=== PATIENT | male | born 1960 | race Caucasian/White ===

== ENCOUNTER 2017-09-27 22:14 | Observation (INO) ==
--- NOTE | 2017-09-27 23:28 | Emergency Department Note ---
START Narrative - START START: I examined this patient and my medical decision-making was reviewed with the Resident Physician. I agree with the documented findings, disposition and treatment plan as described except to the extent set forth below. 57 yo M here for food bolus of steak stuck in esophagus. hx of same in past consult with endoscopy attempted glucagon with no relief. admit to surgical services per dr king. Dr Gallo spoke with her over phone
--- NOTE | 2017-09-27 23:34 | Emergency Department Note ---
Disposition Clinical Impression: Esophageal obstruction due to food impaction Disposition: Admitted As Inpatient Condition: Fair Time of Disposition: 00:05 General Adult HPI - General Chief complaint: ED Shortness of Breath/Dyspnea Stated complaint: Food Bolus Time Seen by Provider: 09/27/17 23:11 Source: patient Limitations: no limitations - History of Present Illness HPI Narrative: Patient is a 57-year-old male who presented to [facility] ED on 09/27/17 with a chief complaint of choking. Patient states that approximately 7 PM, he choked on a bolus of food. He was eating steak when he began to choke. Patient attempted to cough up the piece of steak several times without success. Patient states that this happens to him very frequently before the year 2010, when he was diagnosed with esophageal stricture. Patient underwent an esophageal dilation procedure. Ever since this time, patient has had no episodes of choking. Patient admits that he took a cough suppressant medication one day prior to this episode. Patient is not currently on any blood thinners. Patient is unable to tolerate anything by mouth at this time. Patient states that he vomits subsequently after any oral intake. He reports that he is bringing up a large amount of mucus. Denies having any abdominal pain. No further complaints at this time. Pt Subjective Complaint: Choking Onset (ago): hour(s) Pain Scale: 3 Improves with: nothing Worsens with: nothing Associated symptoms: Reports: nausea/vomiting - Related Data Previous Rx's Medication Instructions Recorded Mupirocin [Bactroban Oint] 1 appl TP BID 7 Days tube 11/25/16 Sulfamethoxazole/Trimeth DS 1 each PO BID #14 tablet 11/25/16 [Bactrim DS] Allergies Allergy/AdvReac Type Severity Reaction Status Date / Time No Known Allergies Allergy Verified 11/25/16 14:11 Constitutional: Reports: as per HPI. Denies: fever, chills Eyes: Reports: as per HPI. Denies: eye pain, eye discharge ENT ED: Reports: as per HPI. Denies: ear pain, throat pain Cardiovascular: Reports: as per HPI. Denies: chest pain, palpitations Respiratory: Reports: as per HPI. Denies: cough, dyspnea Gastrointestinal: Reports: as per HPI. Denies: abdominal pain, nausea Genitourinary: Reports: as per HPI. Denies: urgency, dysuria Musculoskeletal: Reports: as per HPI. Denies: back pain, neck pain Integumentary: Reports: as per HPI. Denies: rash, abrasion Neurological: Reports: as per HPI. Denies: headache, weakness Psychiatric: Reports: as per HPI. Denies: anxiety, depression Past Medical History - Past Medical History Medical history: Reports: non-contributory Psychiatric history: Reports: no psych history - Social History Smoking Status: Never smoker Smokeless Tobacco Status: No Alcohol use: Reports: none Drug use: Reports: none Physical Exam - General Limitations: no limitations General appearance: alert - Head Head exam: atraumatic, other (Patient is speaking in a hoarse voice) - Chest Chest inspection: Present: normal inspection, symmetric chest wall rise - Respiratory Respiratory exam: Present: normal lung sounds bilaterally. Absent: respiratory distress, accessory muscle use, prolonged expiratory phase - Cardiovascular Cardiovascular exam: Present: regular rate, normal rhythm, normal heart sounds, +S1, +S2. Absent: bradycardia, tachycardia, systolic murmur, diastolic murmur - Abdominal Exam Abdominal exam: Present: soft, Non-Tender - Neurological Exam Neurological exam: Present: alert, oriented X3 - Psychiatric Psychiatric exam: Present: normal affect - Skin Skin exam: Present: warm, dry, intact Course Course Narrative: Patient is a 57-year-old gentleman who presented after choking on a fluid bolus. Patient is in a moderate amount of distress. He is producing a small amount of mucus from his mouth. He is unable to cough up any food material. Unable to tolerate oral intake at this time. We will start him on normal saline. Spoke with surgeon Dr. Hicks, who requested that he be admitted to the floor. Patient will be scoped tomorrow morning. Vital Signs Temperature 98 F 09/27/17 22:18 Pulse Rate 107 09/27/17 22:18 Respiratory Rate 20 09/27/17 22:18 Blood Pressure 182/118 09/27/17 22:18 O2 Sat by Pulse Oximetry 98 09/27/17 22:18 Temperature 98 F 09/27/17 22:18 Pulse Rate 80 09/27/17 23:51 Respiratory Rate 16 09/27/17 23:51 Blood Pressure 118/76 09/27/17 23:51 O2 Sat by Pulse Oximetry 98 09/27/17 23:51 Oxygen Delivery Oxygen Delivery Room Air
[2017-09-27] MEDS: 0.9 % Sodium Chloride 1,000 ML IVC SCH (23:35)
[2017-09-27] MEDS ORDERED: *HR* Nalbuphine 20 MG/ML AMPUL IVP ONE (23:44)
[2017-09-27] MEDS ORDERED: Ondansetron 4 MG/2 ML VIAL IVP ONE (23:44)
[2017-09-27] MEDS ORDERED: *HR* Nalbuphine 10 MG/ML AMPUL IVP ONE (23:45)
[2017-09-28] MEDS: 0.9 % Sodium Chloride 1,000 ML IVC SCH (00:42)
[2017-09-28] MEDS ORDERED: Ondansetron 4 MG/2 ML VIAL IVP PRN (05:19)
--- NOTE | 2017-09-28 06:03 | General Surg History&Physical ---
Date of Encounter: 09/28/17 Time of Encounter: 06:01 Assessment and Plan (1) Esophageal obstruction due to food impaction Current Visit: Yes Status: Acute The assessment and plan as outlined above was discussed with the patient and/or family members who expressed understanding and agreement. All questions were answered.] discussed with patient and his we will plan EGD with foreign body extraction. will dilate if needed npo ivf History of Present Illness Chief complaint: steak stuck in esophagus HPI: Mr. Buck is a 57 year old male who was eating steak at 7pm when he felt a piece of steak lodge at bottom of esophagus. He denies chest or throat pain. No abdominal pain. No nausea. Is not able to swallow his secretions. He had an esophageal foreign body removed in 2010 and subsequent dilation. No issues since then. Past Med Surg Social Fam HX - Past Medical History Source: patient Medical history: hyperlipidemia Psychiatric history: no psych history - Past Surgical History Surgical History: cholecystectomy, other (spinal fusion after fall with fracture scarum/coccyx/L1 burst fracture) - Social History Smoking Status: Never smoker Smokeless Tobacco Status: No Alcohol use: none Drug use: none - Family History Father Adopted: [place]: [place] Family Member Ethnicity: Non- Living Status: Age at : 68 Hx Family Cardiac Disorders: Yes Hx Family Respiratory Disorders: No Hx Family Cancer: No Hx Family GI Disorders: No Hx Family Genitourinary Disorders: No Hx Family Endocrine Disorder: No Hx Family Musculoskeletal Disorders: No Hx Family Neuromuscular Disorders: No Hx Family Neurologic Disorders: No Hx Family HEENT Disorders: No Hx Family Autoimmune Disorders: No Hx Family Reproductive Disorders: No Hx Family Psychosocial Disorders: No Hx Family Medical Disorders: No Medications and Allergies Mupirocin [Bactroban Oint] 1 appl TP BID 7 Days tube 11/25/16 [Rx] Sulfamethoxazole/Trimeth DS [Bactrim DS] 1 each PO BID #14 tablet 11/25/16 [Rx] 3 Allergy/AdvReac Type Severity Reaction Status Date / Time No Known Allergies Allergy Verified 11/25/16 14:11 Review of Systems All systems PM: reviewed and no additional remarkable complaints except as stated All systems PM: The remainder of the systems were reviewed and are negative General Surgery Exam Initial Vital Signs Temp Pulse Resp BP Pulse Ox 98 F 107 20 182/118 98 09/27/17 22:18 09/27/17 22:18 09/27/17 22:18 09/27/17 22:18 09/27/17 22:18 - General physical appearance well developed, well nourished, no distress - Eyes PERRL, normal ocular movement - ENT normal mucosa, normocephalic - Neck trachea midline - Respiratory normal expansion, normal respiratory effort - Cardiovascular Cardiovascular exam: Present: RRR - Abdomen Abdomen general surgery: Present: soft, non tender. Absent: distended, guarding , rebound - Integumentary Integumentary general surgery: Present: warm and dry, no abnormal pigmentation - Neurologic Present: CN 2-12 grossly intact - Musculoskeletal Present: normal posture - Psychiatric Psychiatric general surgery: Present: A&Ox3, speech is normal Results - Labs All other labs normal.
[2017-09-28] MEDS ORDERED: *HR* Midazolam HCl 2 MG/2 ML VIAL IVP ONE (07:07)
[2017-09-28] MEDS ORDERED: Tetracaine/Benzocaine/Butamben 200MG/SPRAY (100SPY/BOT) MM ONE (07:07)
[2017-09-28] MEDS ORDERED: Simethicone 40 MG/0.6 ML MLS IR ONE (07:07)
[2017-09-28] MEDS ORDERED: *HR* Promethazine 25 MG/ML VIAL IVP ONE (07:07)
[2017-09-28] MEDS ORDERED: *HR* FentaNYL (PF) 100 MCG/2 ML VIAL IVP ONE (07:07)
[2017-09-28] MEDS ORDERED: *HR* Midazolam HCl 5 MG/5 ML VIAL IVP ONE (07:16)
[2017-09-28] MEDS ORDERED: *HR* FentaNYL (PF) 100 MCG/2 ML VIAL ONE (07:16)
[2017-09-28] MEDS ORDERED: *HR* Promethazine 25 MG/ML VIAL ONE (07:17)
--- NOTE | 2017-09-28 11:31 | Discharge Summary ---
Date of Encounter: 09/28/17 Time of Encounter: 11:44 - Discharge Diagnosis (1) Esophageal stricture Priority: Primary Status: Resolved (2) Esophageal obstruction due to food impaction Priority: Primary Status: Resolved General Surgery Exam Initial Vital Signs Temp Pulse Resp BP Pulse Ox 98 F 107 20 182/118 98 09/27/17 22:18 09/27/17 22:18 09/27/17 22:18 09/27/17 22:18 09/27/17 22:18 - Hospital Course Hospital course: Mr. Buck is a 57 year old male who presented on 09/27/2017 with complaints of food obstruction. 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 He was recommended to take Carafate 4 times daily and omeprazole daily. We will begin discharge planning to home with a follow-up in 3 weeks. - Time Spent with Patient Total time spent providing and/or coordinating discharge services: - Discharge Medications Prescriptions: Omeprazole [PriLOSEC] 40 mg PO DAILY #30 cap Sucralfate [Carafate] 1 gm PO QIDAC 30 Days #120 tablet Home Medications: Omeprazole [PriLOSEC] 40 mg PO DAILY #30 cap 09/28/17 [Rx] Sucralfate [Carafate] 1 gm PO QIDAC 30 Days #120 tablet 09/28/17 [Rx] Allergies/Adverse Reactions: 3 Allergy/AdvReac Type Severity Reaction Status Date / Time No Known Allergies Allergy Verified 11/25/16 14:11 Date of admission: 09/27/17 23:58 Primary care physician: Benji Logan DO Discharging clinician: Diana Stroud) Anticipated date of discharge: 09/28/17 - Patient Status Disposition: Home, Self-Care Condition: Fair Functional capacity at discharge: independent ambulation Overall status at discharge: patient is progressing back to baseline - Discharge Instructions Instructions: Sucralfate (By mouth), Omeprazole (By mouth), Esophageal Dilation (DC) Follow Up With: Benji Logan DO [Primary Care Provider] - Kat Patino [employer] [Advanced Practice Nurse] - 10/19/17 1:15 pm Additional Instructions: Take your medications as directed. Ensure you are chewing your food thoroughly and not taking large bites. Return for previous symptoms. - Diet and Activity Activity: increase activity as tolerated Diet: advance to your usual diet
[2017-09-28 17:27] VITALS: BP 208/97
== END 2017-09-28 11:51 | disposition home or self-care (01) ==
LOC: 3BNU 22:14 → EMEROO 22:14 → 3BNU 09-28 00:05
PROVIDERS: ADMIT Surgery; ATTEND Surgery